=== PATIENT | male | born 1955 | race Caucasian/White ===

== ENCOUNTER 2023-08-18 12:37 | Outpatient (CLI) | payer OTHER, SELFPAY ==
--- NOTE | 2023-08-18 12:45 | US_ITS ---
WS: [id number] ULTRASOUND SOFT TISSUES penis. HISTORY: PENILE NODULE COMPARISON: None available. TECHNIQUE: 2-D and color Doppler imaging is submitted. By history there is a nodule along the RIGHT lateral base of the penis. By ultrasound no nodule is id entified in this location. Symmetric appearance of the soft tissues. No fluid. IMPRESSION: No penile nodule identified by ultrasound. Consider evaluation by urology.
== END 2023-08-18 12:38 | disposition home or self-care (01) ==
LOC: RAD 12:37
PROVIDERS: Family Provider Family Medicine Adult Medicine; PCP Family Medicine Adult Medicine; Visit Provider Nurse Practitioner
DX: N48.89 Other specified disorders of penis (principal)
CPT/HCPCS: 76882